=== PATIENT | male | born 1955 | race Caucasian/White ===

== ENCOUNTER 2023-07-10 20:11 | Outpatient (CLI) | payer MEDICARE | END 2023-07-10 20:12 | disposition critical access hospital (66) | LOC: EMS 20:11 | DX: R53.1 Weakness (principal); R06.02 Shortness of breath | CPT/HCPCS: A0425; A0429 ==

== ENCOUNTER 2023-07-10 20:16 | Emergency (ER) | payer MEDICARE, OTHER ==
[2023-07-10 21:40] LABS: BASOPHILS % (AUTO) 0.5 %; EOSINOPHILS # (AUTO) 0.2 10^3/uL (0.0-0.7); EOSINOPHILS % (AUTO) 3.3 %; HCT - HEMATOCRIT 29.5 % (42.0-52.0); HGB - HEMOGLOBIN 9.5 g/dL (14.0-18.0); LYMPHOCYTES # (AUTO) 1.7 10^3/uL (1.5-3.5); LYMPHOCYTES % (AUTO) 27.4 %; MEAN CORPUSCULAR HEMOGLOBIN 27.9 pg (27.0-31.0); MEAN CORPUSCULAR HGB CONC 32.2 g/dL (32.0-36.0); MEAN CORPUSCULAR VOLUME 86.8 fL (80.0-94.0); MEAN PLATELET VOLUME 11.1 fL (7.4-11.4); MONOCYTES # (AUTO) 0.4 10^3/uL (0.0-1.0); MONOCYTES % (AUTO) 6.9 %; NEUTROPHILS # (AUTO) 3.9 10^3/uL (1.5-6.6); NEUTROPHILS % (AUTO) 61.4 %; PLT - PLATELET COUNT 133 10^3/uL (130-450); RED CELL DISTRIBUTION WIDTH 14.7 % (12.0-15.0); WHITE BLOOD COUNT 6.4 x10^3/uL (4.8-10.8)
--- NOTE | 2023-07-10 21:53 | ED Physician Documentation ---
PD HPI DYSPNEA - Stated complaint Stated Complaint: SOA/GEN WEAKNESS - Chief complaint Chief Complaint: Neuro - History obtained from History obtained from: Patient - Additional information Additional information: BIBA. HPI from patient. Patient complains of approximately 6 days of midline chest pain with dyspnea. Patient underwent bilateral lower extremity ORIF (tibial fractures) in March ([facility]) and has been essentially wheelchair-bound and at [facility] since then. There are no exacerbating factors regarding both the chest pain and the dyspnea. He denies history of similar symptoms. He is afebrile in the ED time of triage, although EMS report included a temperature that they had measured of over 102. Review of Systems Constitutional: reports: Fatigue. denies: Chills, Sweats Cardiac: reports: Chest pain / pressure. denies: Palpitations Respiratory: reports: Dyspnea, Cough GI: reports: Reviewed and negative PD PAST MEDICAL HISTORY - Past Medical History Past Medical History: Yes Endocrine/Autoimmune: Type 2 diabetes - Past Surgical History Past Surgical History: Yes General: Cholecystectomy - Present Medications Home Medications: Ambulatory Orders Medication Instructions Recorded Confirmed Acetaminophen [Tylenol] 650 mg PO TID 07/10/23 07/10/23 Amitriptyline HCl 50 mg PO HS 07/10/23 07/10/23 Atorvastatin Calcium 40 mg PO HS 07/10/23 07/10/23 Cyclobenzaprine HCl 5 mg PO Q8HR PRN 07/10/23 07/11/23 Duloxetine HCl [Cymbalta] 40 mg PO DAILY 07/10/23 07/10/23 Finasteride [Proscar] 5 mg PO DAILY 07/10/23 07/10/23 Furosemide [Lasix] 20 mg PO DAILY 07/10/23 07/10/23 Gabapentin [Neurontin] 600 mg PO TID 07/10/23 07/10/23 Insulin Aspart [Novolog Flexpen] 100 unit SQ PRN PRN 07/10/23 07/10/23 Insulin Detemir [Levemir Flexpen] 38 unit SUBQ HS 07/10/23 07/10/23 Lidocaine Patch 4% [Lidocaine Pain 1 patch TOP DAILY 07/10/23 07/10/23 Relief] Lisinopril [Zestril] 20 mg PO DAILY 07/10/23 07/10/23 Metformin HCl 1,000 mg PO BID 07/10/23 07/10/23 Oxycodone HCl [Oxaydo] 5 mg PO BID PRN 07/10/23 07/10/23 Oxycodone HCl [Oxaydo] 5 mg PO Q4HR PRN 07/10/23 07/10/23 Pantoprazole Sodium 40 mg PO DAILY 07/10/23 07/10/23 Pioglitazone HCl [Actos] 30 mg PO DAILY 07/10/23 07/10/23 Spironolactone [Aldactone] 50 mg PO DAILY 07/10/23 07/10/23 Tamsulosin [Flomax] 0.4 mg PO BID 07/10/23 07/10/23 Insulin Detemir [Levemir Flexpen] 40 units SUBQ DAILY 07/11/23 07/11/23 levoFLOXacin [Levofloxacin] 750 mg PO DAILY #6 tab 07/11/23 - Allergies Allergies/Adverse Reactions: Allergies Allergy/AdvReac Type Severity Reaction Status Date / Time No Known Drug Allergies Allergy Verified 07/10/23 20:52 - Social History Does the pt smoke?: No Smoking Status: Never smoker Does the pt drink ETOH?: No Does the pt have substance abuse?: No - Immunizations Immunizations are current?: Yes PD ED PE NORMAL - Vitals Vital signs reviewed: Yes - General General: Alert and oriented X 3, No acute distress, Well developed/nourished - Neck Neck: Supple, no meningeal sign - Cardiac Cardiac: RRR - Respiratory Respiratory: No respiratory distress - Abdomen Abdomen: Soft, Non tender - Derm Derm: Normal color, Warm and dry - Neuro Neuro: Alert and oriented X 3 PD ED PE EXPANDED - Cardiac Cardiac: Murmur Present (3/6 EDITH left 2nd ICS) - Respiratory Respiratory: Clear to ausultation ismael - Extremities Extremities: Pedal edema bilateral Results - Vitals Vitals: Oxygen O2 Source Room air Oxygen Flow Rate 3 - EKG (time done) No standard instances EKG releavant findings:: EKG personally interpreted by author of this note. Relevant findings are: Rate: Rate (enter#) Rhythm: NSR [place]: Normal Intervals: Normal [place] QRS: Normal Ischemia: Non specific changes (V4-V6 NSST changes. inverted T I, aVL) Other comments: Other comments (RSR' V1, V2) - Labs Labs: Laboratory Tests 12/07/10/23 07/10/23 21:33 21:33 21:33 WBC 6.4 RBC 3.40 L Hgb 9.5 L Hct 29.5 L MCV 86.8 MCH 27.9 MCHC 32.2 RDW 14.7 Plt Count 133 MPV 11.1 Neut # (Auto) 3.9 Lymph # (Auto) 1.7 [place] # (Auto) 0.4 Eos # (Auto) 0.2 Baso # (Auto) 0.0 Absolute Nucleated RBC 0.00 Nucleated RBC % 0.0 Sodium 142 Potassium 3.8 Chloride 107 Carbon Dioxide 26 Anion Gap 9.0 BUN 22 H Creatinine 1.1 Estimated GFR (MDRD) 67 L Glucose 122 H Calcium 9.5 Total Bilirubin 0.7 AST 16 ALT 10 Alkaline Phosphatase 95 Troponin I High Sens 1186.3 H* B-Natriuretic Peptide Total Protein 7.0 Albumin 3.9 Globulin 3.1 Albumin/Globulin Ratio 1.3 Lipase < 10 L Nasal Adenovirus (PCR) Nasal B. parapertussis DNA (PCR) Nasal Coronavir 229E PCR Nasal Coronavir HKU1 PCR Nasal Coronavir NL63 PCR Nasal Coronavir OC43 PCR Nasal Enterovir/Rhinovir PCR Nasal Influenza B PCR Nasal Influenza A PCR Nasal Parainfluen 1 PCR Nasal Parainfluen 2 PCR Nasal Parainfluen 3 PCR Nasal Parainfluen 4 PCR Nasal RSV (PCR) Nasal B.pertussis DNA PCR Nasal C.pneumoniae (PCR) Hal Human Metapneumo PCR Nasal M.pneumoniae (PCR) Nasal SARS-CoV-2 (PCR) 07/10/23 07/10/23 07/11/23 21:33 22:00 01:11 WBC RBC Hgb Hct MCV MCH MCHC RDW Plt Count MPV Neut # (Auto) Lymph # (Auto) [place] # (Auto) Eos # (Auto) Baso # (Auto) Absolute Nucleated RBC Nucleated RBC % Sodium Potassium Chloride Carbon Dioxide Anion Gap BUN Creatinine Estimated GFR (MDRD) Glucose Calcium Total Bilirubin AST ALT Alkaline Phosphatase Troponin I High Sens 983.4 H* B-Natriuretic Peptide 764 H Total Protein Albumin Globulin Albumin/Globulin Ratio Lipase Nasal Adenovirus (PCR) NOT DETECTED Nasal B. parapertussis DNA (PCR) NOT DETECTED Nasal Coronavir 229E PCR NOT DETECTED Nasal Coronavir HKU1 PCR NOT DETECTED Nasal Coronavir NL63 PCR NOT DETECTED Nasal Coronavir OC43 PCR NOT DETECTED Nasal Enterovir/Rhinovir PCR NOT DETECTED Nasal Influenza B PCR NOT DETECTED Nasal Influenza A PCR NOT DETECTED Nasal Parainfluen 1 PCR NOT DETECTED Nasal Parainfluen 2 PCR NOT DETECTED Nasal Parainfluen 3 PCR NOT DETECTED Nasal Parainfluen 4 PCR NOT DETECTED Nasal RSV (PCR) NOT DETECTED Nasal B.pertussis DNA PCR NOT DETECTED Nasal C.pneumoniae (PCR) NOT DETECTED Hal Human Metapneumo PCR NOT DETECTED Nasal M.pneumoniae (PCR) NOT DETECTED Nasal SARS-CoV-2 (PCR) NOT DETECTED - Rads (name of study) CTA chest Relevant Findings:: Prelim report reviewed, See rad report PD Medical Decision Making - ED course Complexity details: reviewed results, re-evaluated patient, considered differential, d/w patient ED course: Findings on EKG are nonspecific, but not suggestive of WI/ACS. CTA chest is neg ative for pulmonary embolus, but does demonstrate mild bilateral effusions with superimposed opacities which may represent atelectasis versus developing pneumonia. For this finding (possible pneumonia), he is given Levaquin in ED with Rx for 6 more days to complete a 1-week course. He is afebrile and white blood cell count normal. Red blood cell level is 9.5; no previous results to use for comparison, but this is unlikely to be causing or contributing to his symptoms. One of the more concerning findings is a high-sensitivity troponin of 1186. However, repeat troponin (over three hours after first draw) is 983; while this is still obviously quite elevated, represents a significant decrease from the initial result. He is given 5mg oxycodone during ED stay for BLE pain which he has interm ittently since the surgery in March, with repeat dose later in his stay. Departure - Departure Disposition: 01 Home, Self Care Clinical Impression: Chest pain Qualifiers: Chest pain type: unspecified Qualified Code(s): R07.9 - Chest pain, unspecified Dyspnea Qualifiers: Dyspnea type: shortness of breath Qualified Code(s): R06.02 - Shortness of breath Condition: Good Instructions: ED Chest Pain Atypical Unkn Cause, ED Dyspnea Shortness of Breath Prescriptions: levoFLOXacin [Levofloxacin] 750 mg PO DAILY #6 tab Comments: The results of tonight's tests are mostly reassuring and do not provide a definitive cause of your symptoms. The CT scan of your chest shows some fluid in both lungs, but the amount of fluid is too small to explain your shortness of breath. This finding might need further testing such as an echocardiogram (ultrasound of your heart), but at this time, this can be undertaken in the outpatient setting at the discretion of your primary care provider. As we discussed, there is also a finding on the CT scan of possible early pneumonia; to cover this possibility, you were given the first dose of an antibiotic (levofloxacin) in the emergency department and I am providing you with a prescription for a six day course of this antibiotic, as well. There is no evidence of blood clot in your lungs on this CT scan. There are no concerning findings on your EKG to suggest angina or heart attack. While a cardiac enzyme blood test was quite elevated, this was repeated a few hours later and the second result it decreased significantly which suggests this test result is not indicative of an acute/emergent problem such as a heart attack. Follow-up with your primary care provider, next available appointment, for reevaluation. Certainly, you should return to the emergency department at any time your symptoms worsen or if you develop new/concerning signs/symptoms (such as fever, increasing symptoms including shortness of breath or chest pain, worsening cough). Forms: PCP List Discharge Date/Time: 07/11/23 09:37
[2023-07-10 21:59] LABS: ALBUMIN 3.9 g/dL (3.2-5.5); ALBUMIN/GLOBULIN RATIO 1.3 (1.0-2.2); ALKALINE PHOSPHATASE 95 IU/L (42-121); ALT ALANINE AMINOTRANSFERASE 10 IU/L (10-60); AST ASPARTATE AMINOTRANSFERASE 16 IU/L (10-42); BILIRUBIN,TOTAL 0.7 mg/dL (0.2-1.0); BUN - BLOOD UREA NITROGEN 22 mg/dL (6-20); CALCIUM 9.5 mg/dL (8.5-10.3); CARBON DIOXIDE - CO2 26 mmol/L (21-32); CHLORIDE 107 mmol/L (101-111); CREATININE 1.1 mg/dL (0.6-1.3); GFR - MDRD 67 (>89); GLUCOSE 122 mg/dL (74-104); POTASSIUM 3.8 mmol/L (3.5-4.5); SODIUM 142 mmol/L (135-145)
[2023-07-10 22:00] LABS: LIPASE < 10 U/L (11-82)
[2023-07-10 23:25] LABS: B. PARAPERTUSSIS- RESP PCR PAN NOT DETECTED; B. PERTUSSIS- RESP PCR PANEL NOT DETECTED; C. PNEUMONIAE- RESP PCR PANEL NOT DETECTED; CORONAVIRUS 229E-RESP PCR NOT DETECTED; CORONAVIRUS HKU1-RESP PCR NOT DETECTED; CORONAVIRUS NL63-RESP PCR NOT DETECTED; CORONAVIRUS OC43-RESP PCR NOT DETECTED; HUMAN METAPNEUMOVIRUS NOT DETECTED; INFLUENZA A- RESP PCR PANEL NOT DETECTED; INFLUENZA B - RESP PCR PANEL NOT DETECTED; M. PNEUMONIAE- RESP PCR PANEL NOT DETECTED; PARAINFLUENZA VIRUS 1 NOT DETECTED; PARAINFLUENZA VIRUS 2 NOT DETECTED; PARAINFLUENZA VIRUS 3 NOT DETECTED; PARAINFLUENZA VIRUS 4 NOT DETECTED; RHINOVIRUS/ENTEROVIRUS NOT DETECTED; RSV- RESP PCR PANEL NOT DETECTED; SARS-CoV-2 -RESP PCR PANEL NOT DETECTED
[2023-07-11] MEDS ORDERED: iohexoL-300 100 ML VIAL IVP ONE (00:31)
--- NOTE | 2023-07-11 01:08 | CT Report ---
PROCEDURE: ANGIO CHEST W/WO INDICATIONS: pleuritic chest pain CONTRAST: Omni 300 100ml TECHNIQUE: After the administration of intravenous contrast, 2 mm axial images were acquired from the pulmonary apices to the posterior costophrenic angles during the arterial phase. In addition, 1 mm lung kernel and 5 mm soft tissue kernel reconstructions were performed. 3-dimensional coronal oblique maximum int ensity projection (MIP) reformats, 8 mm axial MIP, and 5 mm coronal and sagittal MPR reformats were t hen performed through the thorax. For radiation dose reduction, the following was used: automated exp osure control, adjustment of mA and/or kV according to patient size. COMPARISON: None FINDINGS: Image quality: Excellent. Large vessels: No filling defects within the opacified pulmonary arteries, accounting for motion and contrast timing. No evidence of acute aortic syndrome or aortic aneurysm. Lungs and pleura: . Mild bilateral effusions with superimposed opacities.. No pneumothorax. No suspi cious pulmonary nodules which require follow up. Mediastinum: Heart size is normal. No pericardial effusion. No large vessel abnormality. Borderline e nlarged mediastinal lymph nodes. Chest wall and lower neck: Thyroid is unremarkable. No axillary or supraclavicular adenopathy by size . Bones: No aggressive osseous abnormality. Upper Abdomen: Unremarkable. IMPRESSION: No pulmonary embolus. Mild bilateral effusions. Superimposed opacities are present which may represent atelectasis versus d eveloping pneumonia. Reviewed by: Judie Chinchilla MD on 07/11/2023 1:06 AM PST Approved by: Judie Chinchilla MD on 07/11/2023 1:06 AM PST Station ID: [id number]
[2023-07-11] MEDS ORDERED: oxyCODONE 5 MG TABLET PO STA ×2 (01:41→03:55)
[2023-07-11] MEDS ORDERED: levoFLOXacin 500 MG/100 ML 500 MG/100 ML BAG IV STA (03:58)
[2023-07-11 08:05] VITALS: BP 163/86; O2SAT 92
== END 2023-07-11 09:37 | disposition home or self-care (01) ==
LOC: ED 20:16
DX: R07.9 Chest pain, unspecified (principal); R06.02 Shortness of breath; E11.9 Type 2 diabetes mellitus without complications; Z79.4 Long term (current) use of insulin; Z20.822 Contact with and (suspected) exposure to COVID-19
CPT/HCPCS: 36415; 71275; 80053; 83690; 83880; 84484; 85025; 87633; 93005; 96365; 99284; A9270; Q9967

== ENCOUNTER 2023-07-11 09:21 | Outpatient (CLI) | payer OTHER, MEDICARE | END 2023-07-11 23:59 | LOC: EMS 09:21 | PROVIDERS: ATTEND Emergency Medicine | DX: R11.0 Nausea (principal); R07.9 Chest pain, unspecified; E66.01 Morbid (severe) obesity due to excess calories; Z99.3 Dependence on wheelchair | CPT/HCPCS: A0425; A0428 ==

== ENCOUNTER 2023-07-28 16:21 | Outpatient (CLI) | payer MEDICARE | END 2023-07-28 23:59 | disposition critical access hospital (66) | LOC: EMS 16:21 | DX: R07.9 Chest pain, unspecified (principal) | CPT/HCPCS: A0425; A0427 ==

== ENCOUNTER 2023-07-28 16:29 | Emergency (ER) | payer MEDICARE ==
[2023-07-28] MEDS ORDERED: HYDROmorphone 2 MG/ML VIAL IVP STA (16:33)
--- NOTE | 2023-07-28 16:37 | ED Physician Documentation ---
PD HPI CHEST PAIN - Stated complaint Stated Complaint: CHEST PX - History obtained from History obtained from: Patient - Additional information Additional information: He has a history of cirrhosis, type 2 diabetes and has been in [place] [facility] after a ORIF of a tibial fracture in March. He developed sudden onset chest pain, substernal radiating to the anterior shoulders about 45 minutes ago while at rest. States he has never had anything like this before but review of the chart shows that he was here 5 days before [place] for a similar presentation. At that time he was found to be modestly anemic with very elevated troponin,. His troponin was stable to slightly downtrending during that visit and he was treated for a pneumonia. He was subsequently discharged on Levaquin. PD PAST MEDICAL HISTORY - Past Medical History Cardiovascular: Hypertension, Valve disorder Neuro: Peripheral neuropathy Endocrine/Autoimmune: Type 2 diabetes GI: GERD, Hepatitis, Cirrhosis : Benign prostate hypertrophy Psych: Depression - Past Surgical History Past Surgical History: Yes General: Cholecystectomy - Present Medications Home Medications: Ambulatory Orders Medication Instructions Recorded Confirmed Acetaminophen [Tylenol] 650 mg PO TID 07/10/23 07/10/23 Amitriptyline HCl 50 mg PO HS 07/10/23 07/10/23 Atorvastatin Calcium 40 mg PO HS 07/10/23 07/10/23 Cyclobenzaprine HCl 5 mg PO Q8HR PRN 07/10/23 07/11/23 Duloxetine HCl [Cymbalta] 40 mg PO DAILY 07/10/23 07/10/23 Finasteride [Proscar] 5 mg PO DAILY 07/10/23 07/10/23 Furosemide [Lasix] 20 mg PO DAILY 07/10/23 07/10/23 Gabapentin [Neurontin] 600 mg PO TID 07/10/23 07/10/23 Insulin Aspart [Novolog Flexpen] 100 unit SQ PRN PRN 07/10/23 07/10/23 Insulin Detemir [Levemir Flexpen] 38 unit SUBQ HS 07/10/23 07/10/23 Lidocaine Patch 4% [Lidocaine Pain 1 patch TOP DAILY 07/10/23 07/10/23 Relief] Lisinopril [Zestril] 20 mg PO DAILY 07/10/23 07/10/23 Metformin HCl 1,000 mg PO BID 07/10/23 07/10/23 Oxycodone HCl [Oxaydo] 5 mg PO BID PRN 07/10/23 07/10/23 Oxycodone HCl [Oxaydo] 5 mg PO Q4HR PRN 07/10/23 07/10/23 Pantoprazole Sodium 40 mg PO DAILY 07/10/23 07/10/23 Pioglitazone HCl [Actos] 30 mg PO DAILY 07/10/23 07/10/23 Spironolactone [Aldactone] 50 mg PO DAILY 07/10/23 07/10/23 Tamsulosin [Flomax] 0.4 mg PO BID 07/10/23 07/10/23 Insulin Detemir [Levemir Flexpen] 40 units SUBQ DAILY 07/11/23 07/11/23 levoFLOXacin [Levofloxacin] 750 mg PO DAILY #6 tab 07/11/23 oxyCODONE [Roxicodone] 2 tab PO Q4-6H PRN #15 tablet 07/28/23 - Allergies Allergies/Adverse Reactions: Allergies Allergy/AdvReac Type Severity Reaction Status Date / Time No Known Drug Allergies Allergy Verified 07/10/23 20:52 - Social History Does the pt smoke?: No Smoking Status: Never smoker Does the pt drink ETOH?: No Does the pt have substance abuse?: No - Immunizations Immunizations are current?: Yes - POLST Patient has POLST: Yes PD ED PE NORMAL - Vitals Vital signs reviewed: Yes - General General: Alert and oriented X 3, Other (Appears very uncomfortable and clutching his chest) - HEENT HEENT: PERRL, EOMI - Neck Neck: Supple, no meningeal sign, No bony TTP - Cardiac Cardiac: RRR, No murmur - Respiratory Respiratory: No respiratory distress, Clear bilaterally - Abdomen Abdomen: Non tender - Derm Derm: Normal color, Warm and dry - Extremities Extremities: Other (Significant venous stasis changes of both legs and brawny edema.) - Neuro Neuro: Alert and oriented X 3, Normal speech Results - Vitals Vitals: Vital Signs - 24 hr 07/28/23 07/28/23 07/28/23 16:36 17:27 17:51 Temperature 36.1 C L Heart Rate 71 65 88 Respiratory 24 22 17 Rate Blood Pressure 144/81 H 146/77 H 136/83 H O2 Saturation 97 88 L 94 If not protocol 1 : Oxygen Flow, liters/minute 07/28/23 07/28/23 18:30 20:12 Temperature Heart Rate 77 75 Respiratory 17 14 Rate Blood Pressure 159/101 H 168/81 H O2 Saturation 95 97 If not protocol : Oxygen Flow, liters/minute Oxygen O2 Source Room air - EKG (time done) 1639 EKG releavant findings:: EKG personally interpreted by author of this note. Relevant findings are: Rate: Rate (enter#) (73) Rhythm: NSR [place]: Normal Intervals: Normal [place] QRS: Normal Ischemia: Non specific changes (RSR prime in V1 and V2 and mild lateral ST depression and T wave inversion which is improved compared to the prior EKG dated July 10, 2023). No: ST elevation c/w ischemia - Labs Labs: Laboratory Tests 07/28/23 07/28/23 07/28/23 16:53 16:53 18:56 WBC 6.7 RBC 3.12 L Hgb 8.9 L Hct 27.7 L MCV 88.8 MCH 28.5 MCHC 32.1 RDW 15.0 Plt Count 148 MPV 11.8 H Neut # (Auto) 4.3 Lymph # (Auto) 1.6 [place] # (Auto) 0.5 Eos # (Auto) 0.3 Baso # (Auto) 0.0 Absolute Nucleated RBC 0.00 Nucleated RBC % 0.0 Sodium 140 Potassium 4.1 Chloride 108 Carbon Dioxide 27 Anion Gap 5.0 L BUN 22 H Creatinine 1.0 Estimated GFR (MDRD) 74 L Glucose 133 H Calcium 8.8 Total Bilirubin 0.7 AST 17 ALT 12 Alkaline Phosphatase 94 Troponin I High Sens 27.8 H* 27.2 H* Total Protein 6.5 Albumin 3.6 Globulin 2.9 Albumin/Globulin Ratio 1.2 Lipase 10 L PD Medical Decision Making - ED course ED course: 68-year-old gentleman presents with chest pain, very concerning for ischemic disease given his history and appearance. Nothing in the history or physical to suggest aortic dissection. PE is a concern as well given his immobility and recent leg fracture. He received aspirin prior to arrival. He was treated here with divided doses of Dilaudid with good effect. On reexamination at 5:41 PM he was sleeping comfortably but when the woken said he still had severe pain. Plan to do CT angiography and repeat troponin at 7 PM or so. His initial troponin was minimally elevated, but certainly much better than it was when he was here for chest pain a few weeks ago. CBC showing persistent anemia. CMP otherwise relatively unremarkable. Repeat troponin was completely flat. CT angiography was without pulmonary embolism. He does have increasing pleural effusions which may be from his liver disease. Departure - Departure Disposition: Home, Self Care Clinical Impression: Chest pain Condition: Good Record reviewed to determine appropriate education?: Yes Instructions: ED Chest Pain Pleurisy Prescriptions: oxyCODONE [Roxicodone] 2 tab PO Q4-6H PRN #15 tablet PRN Reason: Pain Comments: You do have increasing sizes of pleural effusions. This may be what is causing your pain numbness pleurisy. I am increasing your pain medications, and you should have future imaging, consider CT in 3 to 6 months to reassess the effusions. There is no evidence of heart attack or blood clot on imaging or labs respectively. I did call [facility] to see which pharmacy is preferred. My recollection was that it was [facility] and that is where I sent his prescription to. That said there was no answer when I called and it went to voicemail so I could not confirm so call us if that is not correct.
[2023-07-28 16:59] LABS: BASOPHILS % (AUTO) 0.4 %; EOSINOPHILS # (AUTO) 0.3 10^3/uL (0.0-0.7); EOSINOPHILS % (AUTO) 4.2 %; HCT - HEMATOCRIT 27.7 % (42.0-52.0); HGB - HEMOGLOBIN 8.9 g/dL (14.0-18.0); LYMPHOCYTES # (AUTO) 1.6 10^3/uL (1.5-3.5); LYMPHOCYTES % (AUTO) 23.4 %; MEAN CORPUSCULAR HEMOGLOBIN 28.5 pg (27.0-31.0); MEAN CORPUSCULAR HGB CONC 32.1 g/dL (32.0-36.0); MEAN CORPUSCULAR VOLUME 88.8 fL (80.0-94.0); MEAN PLATELET VOLUME 11.8 fL (7.4-11.4); MONOCYTES # (AUTO) 0.5 10^3/uL (0.0-1.0); MONOCYTES % (AUTO) 7.9 %; NEUTROPHILS # (AUTO) 4.3 10^3/uL (1.5-6.6); NEUTROPHILS % (AUTO) 63.7 %; PLT - PLATELET COUNT 148 10^3/uL (130-450); RED BLOOD COUNT 3.12 10^6/uL (4.70-6.10); WHITE BLOOD COUNT 6.7 x10^3/uL (4.8-10.8)
--- NOTE | 2023-07-28 17:04 | XRAY Report ---
PROCEDURE: Chest 1V INDICATIONS: Chest Pain TECHNIQUE: One view of the chest was acquired. COMPARISON: Correlation is made with chest CT, 07/10/2023 FINDINGS: Surgical changes and devices: None. Lungs and pleura: Abnormal interstitial prominence can be seen. Blunting of the costophrenic angles can be seen. No pneumothorax is seen. Low lung volumes can be seen, causing a crowded appearance to t he lung markings. Mediastinum: Mediastinal contours appear normal. Heart size is moderately enlarged. Bones and chest wall: No suspicious bony lesions. Age-appropriate degenerative changes are seen. O verlying soft tissues appear unremarkable. IMPRESSION: There is cardiomegaly with interstitial prominence and likely pleural effusions. CHF is suspected. Reviewed by: Carlos Herrera MD on 07/28/2023 4:03 PM [place] Approved by: Carlos Herrera MD on 07/28/2023 4:03 PM [facility] Station ID: [id number]
[2023-07-28] MEDS ORDERED: HYDROmorphone 1 MG/ML CARPUJECT IVP STA (17:13)
[2023-07-28 17:15] LABS: ALBUMIN 3.6 g/dL (3.2-5.5); ALBUMIN/GLOBULIN RATIO 1.2 (1.0-2.2); BILIRUBIN,TOTAL 0.7 mg/dL (0.2-1.0); CALCIUM 8.8 mg/dL (8.5-10.3); POTASSIUM 4.1 mmol/L (3.5-4.5); TOTAL PROTEIN 6.5 g/dL (6.4-8.9)
[2023-07-28 17:39] LABS: TROPONIN I HIGH SENSITIVITY 27.8 ng/L (2.3-19.7)
--- NOTE | 2023-07-28 20:14 | CT Report ---
PROCEDURE: Angio Chest INDICATIONS: chest pain, pe protocol CONTRAST: Omni 300 80ml TECHNIQUE: After the administration of intravenous contrast, 2 mm axial images were acquired from the pulmonary apices to the posterior costophrenic angles during the arterial phase. In addition, 1 mm lung kernel and 5 mm soft tissue kernel reconstructions were performed. 3-dimensional coronal oblique maximum int ensity projection (MIP) reformats, 8 mm axial MIP, and 5 mm coronal and sagittal MPR reformats were t hen performed through the thorax. For radiation dose reduction, the following was used: automated exp osure control, adjustment of mA and/or kV according to patient size. COMPARISON: 07/10/2023 FINDINGS: Image quality: Diagnostic, however limited by arms at side position causing beam hardening artifact. Lungs and pleura:Moderate right and small left pleural effusions, slightly increased from prior. Diff use prominence of the interstitium as seen on radiography, and bibasilar mild effusions. Mediastinum, heart, and esophagus: The distal arteries are obscured by artifact. There is no pulmonar y embolism in the central arteries. Trace pericardial effusion. Cardiomegaly. No pathologic lymph nod es by size criteria within the limits of arterial phase evaluation. Some prominent mediastinal lymph nodes are again seen, which may be reactive. Chest wall and thyroid: Suspected gynecomastia bilaterally. No actionable thyroid nodule identified. Upper abdomen: Partially seen on this arterial phase study, no gross abnormality. Bones: No acute or suspicious osseous finding. IMPRESSION: Artifact degraded study. No acute pulmonary embolism. Moderate right and small left pleural effusions, slightly increased. Underlying interstitial prominen ce and opacities, likely atelectasis and edema versus superimposed infection. Consider future imaging surveillance to assess for resolution. Reviewed by: Luis Alberto Huizar MD on 07/28/2023 8:13 PM PST Approved by: Luis Alberto Huizar MD on 07/28/2023 8:13 PM PST Station ID: [id number]
[2023-07-28] MEDS ORDERED: KETOROLAC 15 MG/ML VIAL IVP STA (20:28)
[2023-07-28] MEDS ORDERED: iohexoL-300 100 ML VIAL IVP ONE (20:43)
[2023-07-28 20:54] VITALS: BP 172/90; O2SAT 93
== END 2023-07-28 21:20 | disposition home or self-care (01) ==
LOC: EDUNIT# → ED 16:29
DX: R07.9 Chest pain, unspecified (principal); E11.42 Type 2 diabetes mellitus with diabetic polyneuropathy; Z79.4 Long term (current) use of insulin
CPT/HCPCS: 36415; 71045; 71275; 80053; 83690; 84484; 85025; 93005; 96374; 96375; 96376; 99284; J1170; Q9967

== ENCOUNTER 2023-07-28 21:04 | Outpatient (CLI) | payer MEDICARE | END 2023-07-28 23:59 | LOC: EMS 21:04 | PROVIDERS: ATTEND Emergency Medicine | DX: J90 Pleural effusion, not elsewhere classified (principal); Z74.01 Bed confinement status; E66.01 Morbid (severe) obesity due to excess calories | CPT/HCPCS: A0425; A0428 ==

== ENCOUNTER 2023-08-07 09:22 | Outpatient (CLI) | payer MEDICARE ==
[2023-08-07 09:42] LABS: % IRON SATURATION 17 % (20-50); CHOL/HDL RATIO 2.3 (<5.0); CHOLESTEROL 79 mg/dL; HDL CHOLESTEROL 35 mg/dL; IRON 59 ug/dL (50-212); LDL CHOLESTEROL,CALCULATED 32 mg/dL; LDL/HDL RATIO 0.9 (<3.6); TOTAL IRON BINDING CAPACITY 342 ug/dL (250-450); TRANSFERRIN 244 mg/dL (203-362); TRIGLYCERIDES 59 mg/dL (48-352); VLDL CHOLESTEROL 12 mg/dL
[2023-08-07 10:14] LABS: ESTIMATED AVERAGE GLUCOSE 123 mg/dL (70-100); HEMOGLOBIN A1c% 5.9 % (4.27-6.07)
[2023-08-07 10:19] LABS: FERRITIN 26.8 ng/mL (23.9-336.2)
== END 2023-08-07 09:23 | disposition home or self-care (01) ==
LOC: LAB.R 09:22
PROVIDERS: ATTEND Registered Nurse
DX: E78.5 Hyperlipidemia, unspecified (principal); R94.6 Abnormal results of thyroid function studies; D51.3 Other dietary vitamin B12 deficiency anemia; R79.89 Other specified abnormal findings of blood chemistry; E11.42 Type 2 diabetes mellitus with diabetic polyneuropathy; D64.9 Anemia, unspecified
CPT/HCPCS: 80061; 82306; 82728; 83036; 83540; 83721; 84436; 84443; 84466

== ENCOUNTER 2023-09-18 14:34 | Outpatient (CLI) | payer MEDICARE ==
[2023-09-18 14:45] LABS: BASOPHILS % (AUTO) 0.6 %; EOSINOPHILS # (AUTO) 0.3 10^3/uL (0.0-0.7); EOSINOPHILS % (AUTO) 4.6 %; HCT - HEMATOCRIT 29.9 % (42.0-52.0); HGB - HEMOGLOBIN 9.3 g/dL (14.0-18.0); LYMPHOCYTES # (AUTO) 1.4 10^3/uL (1.5-3.5); LYMPHOCYTES % (AUTO) 20.2 %; MEAN CORPUSCULAR HEMOGLOBIN 27.4 pg (27.0-31.0); MEAN CORPUSCULAR HGB CONC 31.1 g/dL (32.0-36.0); MEAN CORPUSCULAR VOLUME 87.9 fL (80.0-94.0); MEAN PLATELET VOLUME 12.2 fL (7.4-11.4); MONOCYTES # (AUTO) 0.6 10^3/uL (0.0-1.0); MONOCYTES % (AUTO) 8.6 %; NEUTROPHILS # (AUTO) 4.5 10^3/uL (1.5-6.6); NEUTROPHILS % (AUTO) 65.7 %; PLT - PLATELET COUNT 160 10^3/uL (130-450); RED CELL DISTRIBUTION WIDTH 13.9 % (12.0-15.0); WHITE BLOOD COUNT 6.8 x10^3/uL (4.8-10.8)
[2023-09-18 15:46] LABS: CALCIUM 9.3 mg/dL (8.5-10.3); CREATININE 1.2 mg/dL (0.6-1.3); POTASSIUM 4.7 mmol/L (3.5-4.5)
== END 2023-09-18 14:35 | disposition home or self-care (01) ==
LOC: LAB.R 14:34
PROVIDERS: ATTEND Registered Nurse
DX: I10 Essential (primary) hypertension (principal); I48.20 Chronic atrial fibrillation, unspecified; D62 Acute posthemorrhagic anemia
CPT/HCPCS: 80048; 83540; 84466; 85025

== ENCOUNTER 2023-10-04 08:00 | Outpatient (CLI) | payer MEDICARE ==
[2023-10-04 20:05] LABS: BASOPHILS % (AUTO) 0.3 %; EOSINOPHILS # (AUTO) 0.4 10^3/uL (0.0-0.7); EOSINOPHILS % (AUTO) 6.4 %; HCT - HEMATOCRIT 29.7 % (42.0-52.0); HGB - HEMOGLOBIN 9.3 g/dL (14.0-18.0); LYMPHOCYTES # (AUTO) 1.4 10^3/uL (1.5-3.5); LYMPHOCYTES % (AUTO) 20.5 %; MEAN CORPUSCULAR HEMOGLOBIN 27.3 pg (27.0-31.0); MEAN CORPUSCULAR HGB CONC 31.3 g/dL (32.0-36.0); MEAN CORPUSCULAR VOLUME 87.1 fL (80.0-94.0); MEAN PLATELET VOLUME 11.5 fL (7.4-11.4); MONOCYTES # (AUTO) 0.8 10^3/uL (0.0-1.0); MONOCYTES % (AUTO) 11.4 %; NEUTROPHILS # (AUTO) 4.1 10^3/uL (1.5-6.6); NEUTROPHILS % (AUTO) 61.3 %; PLT - PLATELET COUNT 206 10^3/uL (130-450); RED BLOOD COUNT 3.41 10^6/uL (4.70-6.10); RED CELL DISTRIBUTION WIDTH 13.2 % (12.0-15.0); WHITE BLOOD COUNT 6.7 x10^3/uL (4.8-10.8)
== END 2023-10-04 23:59 | disposition home or self-care (01) ==
LOC: LAB.R 08:00
PROVIDERS: ATTEND Registered Nurse
DX: C13.0 Malignant neoplasm of postcricoid region (principal); D62 Acute posthemorrhagic anemia; E51.2 Wernicke's encephalopathy
CPT/HCPCS: 85025

== ENCOUNTER 2023-11-07 08:00 | Outpatient (CLI) | payer MEDICARE ==
[2023-11-07 17:26] LABS: BASOPHILS % (AUTO) 0.4 %; EOSINOPHILS # (AUTO) 0.2 10^3/uL (0.0-0.7); EOSINOPHILS % (AUTO) 2.2 %; HCT - HEMATOCRIT 32.6 % (42.0-52.0); HGB - HEMOGLOBIN 10.5 g/dL (14.0-18.0); LYMPHOCYTES # (AUTO) 2.2 10^3/uL (1.5-3.5); LYMPHOCYTES % (AUTO) 21.2 %; MEAN CORPUSCULAR HEMOGLOBIN 27.1 pg (27.0-31.0); MEAN CORPUSCULAR HGB CONC 32.2 g/dL (32.0-36.0); MEAN CORPUSCULAR VOLUME 84.2 fL (80.0-94.0); MEAN PLATELET VOLUME 12.1 fL (7.4-11.4); MONOCYTES # (AUTO) 0.7 10^3/uL (0.0-1.0); MONOCYTES % (AUTO) 6.3 %; NEUTROPHILS # (AUTO) 7.2 10^3/uL (1.5-6.6); NEUTROPHILS % (AUTO) 69.7 %; PLT - PLATELET COUNT 196 10^3/uL (130-450); RED BLOOD COUNT 3.87 10^6/uL (4.70-6.10); RED CELL DISTRIBUTION WIDTH 13.9 % (12.0-15.0); WHITE BLOOD COUNT 10.3 x10^3/uL (4.8-10.8)
[2023-11-07 17:44] LABS: ALBUMIN 3.8 g/dL (3.2-5.5); ALBUMIN/GLOBULIN RATIO 1.2 (1.0-2.2); BILIRUBIN,TOTAL 0.6 mg/dL (0.2-1.0); CALCIUM 9.7 mg/dL (8.5-10.3); CREATININE 1.5 mg/dL (0.6-1.3); TOTAL PROTEIN 7.1 g/dL (6.4-8.9)
== END 2023-11-07 23:59 | disposition home or self-care (01) ==
LOC: LAB.R 08:00
DX: Z13.0 Encounter for screening for diseases of the blood and blood-forming organs and certain disorders involving the immune mechanism (principal); Z13.228 Encounter for screening for other metabolic disorders
CPT/HCPCS: 80053; 85025

== ENCOUNTER 2023-11-09 10:49 | Outpatient (CLI) | payer MEDICARE | END 2023-11-09 23:59 | disposition critical access hospital (66) | LOC: EMS 10:49 | DX: R07.89 Other chest pain (principal); M54.9 Dorsalgia, unspecified | CPT/HCPCS: A0425; A0429 ==

== ENCOUNTER 2023-11-09 11:00 | Emergency (ER) | payer MEDICARE ==
--- NOTE | 2023-11-09 11:16 | ED Physician Documentation ---
PD HPI CHEST PAIN - Stated complaint Stated Complaint: CP - History obtained from History obtained from: Patient - History of Present Illness Timing - onset: Today, Last night Timing - onset during: Rest Timing - duration: Hours Timing - details: Gradual onset, Still present, Waxing and waning Quality: Pressure, Tightness, Aching Location: Left chest Radiation: No: Neck, Back Worsened by: Inspiration, Movement, Palpation Associated symptoms: No: Shortness of air, Diaphoresis, Cough Similar symptoms before: Diagnosis (has had similar with CHF in the past. Was in hospital recently with diuresis of fluid and thoracentesis of effusion on right (over a liter removed per pt). He states 60 lb weight loss during the few week hospitalization. Has not had weight regain.) Recently seen: Admitted ( Cardiology for CHF and effusion.) Review of Systems Constitutional: denies: Fever, Chills Nose: denies: Rhinorrhea / runny nose, Congestion Throat: denies: Sore throat Cardiac: reports: Chest pain / pressure, Pedal edema (chronic). denies: Palpitations Respiratory: reports: Dyspnea (chronic). denies: Cough PD PAST MEDICAL HISTORY - Past Medical History Cardiovascular: Hypertension, Valve disorder Neuro: Peripheral neuropathy Endocrine/Autoimmune: Type 2 diabetes GI: GERD, Hepatitis, Cirrhosis : Benign prostate hypertrophy Psych: Depression - Past Surgical History Past Surgical History: Yes General: Cholecystectomy - Present Medications Home Medications: Ambulatory Orders Medication Instructions Recorded Confirmed Acetaminophen [Tylenol] 650 mg PO Q6HR PRN 07/10/23 11/09/23 Finasteride [Proscar] 5 mg PO DAILY 07/10/23 11/09/23 Gabapentin [Neurontin] 600 mg PO TID 07/10/23 11/09/23 Insulin Aspart [Novolog Flexpen] 100 unit SQ PRN PRN 07/10/23 07/10/23 Insulin Detemir [Levemir Flexpen] 38 unit SUBQ HS 07/10/23 07/10/23 Metformin HCl 500 mg PO BID 07/10/23 11/09/23 Pantoprazole Sodium 40 mg PO DAILY 07/10/23 11/09/23 Spironolactone [Aldactone] 50 mg PO DAILY 07/10/23 11/09/23 Tamsulosin [Flomax] 0.4 mg PO BID 07/10/23 11/09/23 Insulin Detemir [Levemir Flexpen] 40 units SUBQ DAILY 07/11/23 07/11/23 Acetaminophen [Acetaminophen Extra 500 mg PO QID PRN #50 tablet 11/09/23 Strength] Aspirin EC [Ecotrin] 81 mg PO DAILY 11/09/23 11/09/23 Atorvastatin Calcium 40 mg PO HS 11/09/23 11/09/23 Bisacodyl Supp [Dulcolax Supp] 10 mg KS DAILY PRN 11/09/23 11/09/23 Bumetanide 2 mg PO DAILY 11/09/23 11/09/23 Empagliflozin [Jardiance] 25 mg PO DAILY 11/09/23 11/09/23 Metoprolol Succinate [Toprol Xl] 25 mg PO DAILY 11/09/23 11/09/23 Mineral Oil [Mineral Oil Enema] 1 ea RC DAILY PRN 11/09/23 11/09/23 Nitroglycerin [Nitrostat] 0.4 mg SL [id number] 11/09/23 11/09/23 Ondansetron Odt [Zofran Odt] 4 mg TL Q8H PRN 11/09/23 11/09/23 Senna [Senokot] 17.2 mg PO DAILY PRN 11/09/23 11/09/23 oxyCODONE [Roxicodone] 5 mg PO Q6H PRN #20 tablet 11/09/23 - Allergies Allergies/Adverse Reactions: Allergies Allergy/AdvReac Type Severity Reaction Status Date / Time No Known Drug Allergies Allergy Verified 11/09/23 11:10 - Social History Does the pt smoke?: No Smoking Status: Never smoker Does the pt drink ETOH?: No Does the pt have substance abuse?: No - Immunizations Immunizations are current?: Yes - POLST Patient has POLST: Yes PD ED PE NORMAL - Vitals Vital signs reviewed: Yes - General General: Alert and oriented X 3, No acute distress, Well developed/nourished - Neck Neck: Supple, no meningeal sign, No adenopathy - Cardiac Cardiac: RRR, Other (2/6 murmur right parasternal most prominent, does not sound to neck. Consider Mitral?) - Respiratory Respiratory: Clear bilaterally, Other (left anterior chest with some chestwall and pectoral area tenderness without rash, redness, sores. ) - Abdomen Abdomen: Soft, Non tender - Derm Derm: Normal color, Warm and dry - Extremities Extremities: No calf tenderness / cord, Other (bilateral edema with chronic stasis changes. ) - Neuro Neuro: Alert and oriented X 3, No motor deficit, No sensory deficit, Normal speech Results - Vitals Vitals: Vital Signs - 24 hr 11/09/23 11/09/23 11/09/23 11:10 11:54 12:06 Temperature 36.4 C L Heart Rate 83 76 80 Respiratory 17 13 12 Rate Blood Pressure 138/74 H 124/84 H 136/65 H O2 Saturation 100 98 92 11/09/23 11/09/23 11/09/23 12:30 13:00 13:30 Temperature 36.8 C 36.8 C Heart Rate 79 82 80 Respiratory 16 18 13 Rate Blood Pressure 114/72 124/60 116/61 O2 Saturation 100 96 94 11/09/23 14:00 Temperature Heart Rate 78 Respiratory 17 Rate Blood Pressure 107/55 L O2 Saturation 100 Oxygen O2 Source Room air - EKG (time done) 11:32 EKG releavant findings:: EKG personally interpreted by author of this note. Relevant findings are: Rate: Rate (enter#) (75) Rhythm: NSR [place]: Normal Intervals: Normal [place] QRS: LVH Ischemia: Non specific changes (c/w LVH). No: ST elevation c/w ischemia Compare to prior EKG: Old EKG unavailable - Labs Labs: Laboratory Tests 11/09/23 11/09/23 11/09/23 11:20 11:20 13:06 WBC 8.2 RBC 3.99 L Hgb 10.4 L Hct 33.1 L MCV 83.0 MCH 26.1 L MCHC 31.4 L RDW 13.9 Plt Count 144 MPV 12.2 H Neut # (Auto) 5.9 Lymph # (Auto) 1.4 L [place] # (Auto) 0.6 Eos # (Auto) 0.2 Baso # (Auto) 0.0 Absolute Nucleated RBC 0.00 Nucleated RBC % 0.0 Sodium 133 L Potassium 3.9 Chloride 98 L Carbon Dioxide 23 Anion Gap 12.0 BUN 29 H Creatinine 1.6 H Estimated GFR (MDRD) 43 L Glucose 350 H Calcium 9.9 Phosphorus 3.8 Magnesium 1.5 L Total Bilirubin 1.0 AST 12 ALT 13 Alkaline Phosphatase 87 Troponin I High Sens 28.9 H* 30.1 H* Total Protein 7.0 Albumin 3.8 Globulin 3.2 Albumin/Globulin Ratio 1.2 Lipase 40 - Rads (name of study) chest xray Relevant Findings:: Prelim report reviewed, EMP independent interpretation of test (right basilar infiltrate consider infection vs atelectasis. ) PD Medical Decision Making - ED course Complexity details: reviewed results (ECG with LVH nd secondary changed associated. Consider ischemia, but trop is negative after many hours of pain. Has CXR showing right basilar infiltrate but pt without fever, cough, dsypnea and pain is to the left. Discussed with the patient empiric abx and he would rather defer unless symptoms. ), considered differential (pain left chest anterior with muscular component. Does have hstiroy foCHF and ACS, so want to evaluate for signs of heart injury. ECG/CXR/trop as well as upper abd labs of lipase and LFTw ordered. ), d/w patient Reviewed Lab Results: creatinine is slighlty up from baseline of 1.2, with 1.5 recently and now 1.6. Lytes show low Mag. Normal potassium. Troponin is essentially negative with minimally above normal at 28 with repeat 31. This is normal without change and in light of mild reneal insufficiency and body mass with history of CHF. CXR does not appear failure. Character of his pain is musclar and no signs of CHF/[place]. Has valve disordeer and is in process of scheudling for endovascular valve surgery , but sounds more likely mitral valve. That is in process of scheulding and he does not appear acute failure exac, BP okay, Trop negative and character of pain seems musculoskeletal. NO cough nor pneumonia symptoms. The infiltrate on CXR is in area of recent thoracentesis few weeks ago. Consider residual fluid in fissure or scarring. He prefers not treating for pneumonia wihtout fever/cough/etc. Departure - Departure Disposition: 01 Home, Self Care Clinical Impression: Anterior chest wall pain, History of CHF (congestive heart failure), Valvular heart disease, Lung infiltrate Condition: Stable Record reviewed to determine appropriate education?: Yes Instructions: ED Strain Chest Wall Prescriptions: Acetaminophen [Acetaminophen Extra Strength] 500 mg PO QID PRN #50 tablet PRN Reason: Pain oxyCODONE [Roxicodone] 5 mg PO Q6H PRN #20 tablet PRN Reason: Pain Comments: Your chest x-ray shows an area of fluid in the right middle lobe. This could represent or look like a pneumonia though you are not having any symptoms to account for that. Otherwise I would consider some fluid or scarring along the fissure or perhaps a consolidation of the lung tissue from not as good aeration. Since you are not having any cough or infectious type symptoms, will not treated as pneumonia at this point. If you do start developing cough, fevers, short of breath then we can reconsider it. Otherwise continue with your increased diuretic dose that had been directed by your hose maker. Your blood tests of troponin do not show any signs of heart muscle injury (so no heart attack). You do have tenderness along the anterior chest wall. At this point I would consider it more musculoskeletal pain. I would suggest to do some Tylenol 650 mg 4 times daily regularly for the next week. To that add oxycodone every 4-6 hours if needed for pain. I wrote a prescription for you. Recheck if not improving well over the next several days and return if worse or new symptoms develop. I am prescribing a short course of narcotic pain medication for you. These are potentially dangerous and addictive medications that should be used carefully. These medications may constipate you. Take an [id number] stool softener such as docusate twice daily with plenty of water while taking these medications. If you go 24 hours without a bowel movement, take [id number] MiraLAX, per package instructions. Do not drink or drive while taking these medications. If you received narcotic or sedating medications while in the emergency department do not drive for 24 hours. Store this medication in a safe, secure place and out of reach of children. It is a violation of federal law to give or sell this medication to another person or to use in a manner other than prescribed. The ED will not refill narcotic prescriptions, including prescriptions lost or stolen. You can dispose of unwanted medications at the [facility]'s office or at several pharmacies such as [facility]. Forms: PCP List Discharge Date/Time: 11/09/23 14:45
[2023-11-09 11:30] LABS: BASOPHILS % (AUTO) 0.5 %; EOSINOPHILS # (AUTO) 0.2 10^3/uL (0.0-0.7); EOSINOPHILS % (AUTO) 2.8 %; HCT - HEMATOCRIT 33.1 % (42.0-52.0); HGB - HEMOGLOBIN 10.4 g/dL (14.0-18.0); LYMPHOCYTES # (AUTO) 1.4 10^3/uL (1.5-3.5); LYMPHOCYTES % (AUTO) 17.5 %; MEAN CORPUSCULAR HEMOGLOBIN 26.1 pg (27.0-31.0); MEAN CORPUSCULAR HGB CONC 31.4 g/dL (32.0-36.0); MEAN PLATELET VOLUME 12.2 fL (7.4-11.4); MONOCYTES # (AUTO) 0.6 10^3/uL (0.0-1.0); MONOCYTES % (AUTO) 7.6 %; NEUTROPHILS # (AUTO) 5.9 10^3/uL (1.5-6.6); NEUTROPHILS % (AUTO) 71.4 %; PLT - PLATELET COUNT 144 10^3/uL (130-450); RED BLOOD COUNT 3.99 10^6/uL (4.70-6.10); RED CELL DISTRIBUTION WIDTH 13.9 % (12.0-15.0); WHITE BLOOD COUNT 8.2 x10^3/uL (4.8-10.8)
[2023-11-09 11:49] LABS: TROPONIN I HIGH SENSITIVITY 28.9 ng/L (2.3-19.7)
--- NOTE | 2023-11-09 11:54 | XRAY Report ---
PROCEDURE: Chest 1V INDICATIONS: Chest pain TECHNIQUE: One view of the chest was acquired. COMPARISON: None. FINDINGS: Surgical changes and devices: None. Lungs and pleura: Infiltrate within the right lung base with dense consolidation along the heart bor noemi suggestive of right middle lobe. Small right pleural effusion. Mediastinum: Right heart border is obscured, likely persistent cardiomegaly. Bones and chest wall: No suspicious bony lesions. Overlying soft tissues appear unremarkable. IMPRESSION: Right basilar infiltrate concerning for infection. Pleural effusion. Reviewed by: Cam Wolfe MD on 11/09/2023 10:53 AM NIKI Approved by: Cam Wolfe MD on 11/09/2023 10:53 AM NIKI Station ID: [id number]
[2023-11-09 11:55] LABS: ALBUMIN 3.8 g/dL (3.2-5.5); ALBUMIN/GLOBULIN RATIO 1.2 (1.0-2.2); CALCIUM 9.9 mg/dL (8.5-10.3); CREATININE 1.6 mg/dL (0.6-1.3); POTASSIUM 3.9 mmol/L (3.5-4.5)
[2023-11-09] MEDS: KETOROLAC 15 MG/ML VIAL IVP STA (13:18)
[2023-11-09] MEDS: HYDROmorphone 1 MG/ML CARPUJECT IVP STA (13:20)
[2023-11-09 13:28] LABS: MAGNESIUM 1.5 mg/dL (1.7-2.3); PHOSPHORUS 3.8 mg/dL (2.5-5.0)
[2023-11-09 13:39] LABS: TROPONIN I HIGH SENSITIVITY 30.1 ng/L (2.3-19.7)
[2023-11-09 14:27] VITALS: BP 107/55; O2SAT 100
== END 2023-11-09 14:45 | disposition home or self-care (01) ==
LOC: EDUNIT# → ED 11:00
DX: R07.89 Other chest pain (principal); R91.8 Other nonspecific abnormal finding of lung field; I38 Endocarditis, valve unspecified; N28.9 Disorder of kidney and ureter, unspecified; Z86.79 Personal history of other diseases of the circulatory system
CPT/HCPCS: 36415; 71045; 80053; 83690; 83735; 84100; 84484; 85025; 93005; 96374; 96375; 99284; 99285; J1170